=== PATIENT | female | born 2005 | race Caucasian/White ===

== ENCOUNTER 2025-02-09 14:03 | Outpatient (CLI) | payer OTHER, SELFPAY ==
--- NOTE | 2025-02-09 14:30 | CRLHL7_ITS ---
For Patients: As a result of the 21st Century Cures Act, medical imaging exams and procedure reports are released immediately into your electronic medical record. You may view this report before your referring provider. If you have questions, please contact your health care provider. EXAM: MRI OF THE LEFT KNEE, WITHOUT CONTRAST CLINICAL INDICATION: Left knee pain. [place] pop while climbing. COMPARISON PLAIN FILMS: None available at time of interpretation. COMPARISON CROSS-SECTIONAL IMAGING STUDIES: None available at time of interpretation. TECHNICAL: Axial, sagittal and coronal T1, PD, PD FS and T2 FS images. Knee coil. FINDINGS: MEDIAL COMPARTMENT: Medial Meniscus: Normal size and morphology without tear. Articular Cartilage: Articular surfaces appear smooth without focal articular cartilage defect or subchondral marrow changes. - LATERAL COMPARTMENT: Lateral Meniscus: Normal size and morphology without tear. Articular Cartilage: Articular surfaces appear smooth without focal articular cartilage defect or subchondral marrow changes. - PATELLOFEMORAL COMPARTMENT: Articular Cartilage: Articular surfaces appear smooth without focal articular cartilage defect or subchondral marrow changes. - CRUCIATE LIGAMENTS: Anterior Cruciate Ligament: Normal. Posterior Cruciate Ligament: Normal. - MEDIAL COLLATERAL LIGAMENT AND POSTEROMEDIAL CORNER COMPLEX: Medial Collateral Ligament: There is mild capsular edema superior and posterior to the MCL consistent with capsular sprain. The MCL is intact. Medial Head of the Gastrocnemius and Semimembranosus Tendons: Normal. - LATERAL COLLATERAL LIGAMENT COMPLEX AND POSTEROLATERAL CORNER COMPLEX: Fibular Collateral Ligament: Normal. Distal Biceps Femoris Tendon Complex: Normal. Iliotibial Band: Normal. Popliteus Tendon: Normal. Posterolateral Corner Capsule: Normal. - EXTENSOR MECHANISM: Distal Quadriceps Tendon: Normal. Patellar Tendon: Normal. Medial Patellar Retinaculum and Medial Patellofemoral Ligament: Normal. Lateral Patellar Retinaculum: Normal. Normal patellar alignment. No patella vianey. Normal trochlear depth. Normal lateral trochlear inclination. - JOINT SPACE: Effusion: No significant joint effusion or synovitis. No popliteal cyst. Joint Bodies: None seen. - OSSEOUS STRUCTURES: Small area of intramedullary edema in the lateral nonweightbearing aspect of the lateral femoral condyle. Findings could be due to a direct contusion or sequela from transient patellar dislocation given the location. No patellar contusion is evident. - PERIARTICULAR SOFT TISSUES: Periarticular Cysts or Ganglia: None. Bursae: No prepatellar, superficial infrapatellar, deep infrapatellar, pes anserinus or semimembranosus/MCL bursitis. Musculature: No muscle atrophy or muscle edema. Subcutaneous and Soft Tissues: No subcutaneous or soft tissue mass, edema or fluid collection. Neurovascular Structures: Normal. IMPRESSION: 1. Mild capsular sprain in the medial superior joint margin near the MCL. No MCL sprain. 2. Contusion in the lateral femoral condyle. Findings could be due to a direct injury or sequela from transient patellar dislocation. 3. Remainder unremarkable. Dictated by Abe Gillis MD @ 02/12/2025 9:08:43 AM (Electronically Signed)
== END 2025-02-09 14:04 | disposition home or self-care (01) ==
LOC: MRI 14:06
PROVIDERS: Visit Provider Family Medicine
DX: M25.562 Pain in left knee (principal); S83.412A Sprain of medial collateral ligament of left knee, initial encounter; S80.02XA Contusion of left knee, initial encounter
CPT/HCPCS: 73721